=== PATIENT | female | born 1985 | race Caucasian/White ===

== ENCOUNTER 2018-01-02 19:51 | Emergency (ER) | payer OTHER ==
--- OUTSIDE RECORDS SUMMARY | 2018-01-02 20:18 | XMS REPORT ---
:1985 External Reference #:[id number] Author Organization [facility] Address [address] [place] [address] Phone [phone] Care Team Providers Name Role Phone Bettina Pike Care Team Information Product Analyst Unavailable Jose Cannon M.D. 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 Cigarette Use Current Cigarette Smoker 1/2 Pack Daily Cigarette Use for 12 years Cigars Never Smoked Cigars Pipe Never Smoked A Pipe Smokeless Tobacco Never Used Smokeless Tobacco ETOH Use Currently rarely consumes alcohol Smoking Patient is a current smoker, smokes every day Allergies, Adverse Reactions, Alerts Date Description Reaction Status Severity Comments 07/13/2015 Sulfa Antibiotics active 07/13/2015 Hand Sanitzer active Medications Medication Date Status Form Strength Qnty SIG Indications Ordering Provider Nystatin 12/31 Active Cream [id number] 30gm apply to Erlin Davidson /2017 t/GM right ear MD Franco canal daily for 14 days Mometasone 12/31 Active Cream 0.1% 15gm apply to Erlin Davidson Furoate left ear MD Franco daily for 14 days Singulair 00/00 Active Tablets 10mg 1 by Fenstermacher /0000 mouth Bettina LAWSON every day Maxalt 00/00 Active Tablets 10mg 1 as Fenstermacher /0000 needed Bettina LAWSON headache may repeat in 2 hours if needed Metoclopramide 00 Active Tablets 10mg as Fenstermacher HCL /0000 directed PA, Bettina Xanax Active Tablets 0.5mg 1 tab by Fenstermacher /0000 mouth PA, Bettina every 8 hours as needed Tramadol HCL Active Tablets 50mg 1-2 tabs Fenstermacher /0000 every 4-6 PA, Bettina hours as needed pain Nasonex Active Suspension 50mcg/Act 2 sprays Fenstermacher /0000 intranasa PA, Bettina l daily Clarinex Active Tablets 5mg 1 by Fenstermacher /0000 mouth PA, Bettina every day Trazodone HCL Active Tablets 50mg as Fenstermacher /0000 directed PA, Bettina Symbicort Active Aerosol 80-4.5mcg 2 puff Fenstermacher /0000 /Act twice a PA, Bettina day Dulera Active Aerosol 200-5mcg/ 2 puff Fenstermacher /0000 Act twice a PA, Bettina Proair HFA Active Aerosol 108(90Bas 2 puffs Fenstermacher /0000 e) every 6 PA, Bettina mcg/Act hours as needed wheezing and with exercise if needed Clonazepam Active Kassandra, /0000 Jose Martin M.D. Immunizations CPT Code Status Date Vaccine Lot # [id number] Refused 07/13/2015 Influenza Virus Vaccine, 3 Years Of Age And Above, Intramuscular Vital Signs Date Vital Result Comment 12/31/2017 Weight 140.00 lb Weight in kg's 63.504 Height 69.75 inches 5'9.75" Height in cm's 177.2 cm BMI (Body Mass Index) 20.2 kg/m2 07/13/2015 BP Systolic 108 mmHg BP Diastolic 71 mmHg Heart Rate 88 /min Respiratory Rate 16 /min Weight 156.00 lb Weight in kg's 70.762 Height 69.75 inches 5'9.75" Height in cm's 177.2 cm BMI (Body Mass Index) 22.5 kg/m2 Results Description No Information Procedures Date CPT Code Description Status 07/20/2015 40157 Tympanometry Completed 07/20/2015 17447 Comprehensive Audiogram Completed Encounters Type Date Location Provider CPT E/M Dx Office Visit 12/31/2017 Ashley Melendez 07/08/07 Erlin Gamez, [id number] H60.8x1 9:30a MD Office Visit 07/13/2015 [place],After 07/08/07 Erlin Gamez, [id number] R42 3:30p Plan of Care No Information Available
[2018-01-02] MEDS ORDERED: Acetaminophen TAB* 325 MG PO ONE (20:44)
[2018-01-02] MEDS ORDERED: NS 0.9% 1000 ML*IV.FLUID IV ONE (20:45)
[2018-01-02 21:27] LABS: ABS Basophils 0 10^3/ul (0-0.2); ABS Eosinophils 0 10^3/ul (0-0.6); ABS Lymphocytes 1.1 10^3/ul (1.0-4.8); ABS Monocytes 1.1 10^3/ul (0-0.8); ABS Neutrophils 9.3 10^3/ul (1.5-7.7); ABS Nucleated RBC 0 10^3/ul; Eosinophil % 0.1 % (0-6); Hematocrit 41 % (35-47); Hemoglobin 14.6 g/dl (12.0-16.0); Lymphocyte % 9.4 % (25-47); Mean Corpuscular HGB Conc 35 g/dl (31-36); Mean Corpuscular Hemoglobin 32 pg (27-31); Mean Corpuscular Volume 92 fL (80-97); Mean Platelet Volume 8.3 um3 (7.4-10.4); Nucleated Red Blood Cells % 0.1; Platelet Count 170 10^3/ul (150-450); Red Blood Count 4.52 10^6/ul (4.00-5.40); Red Cell Distribution Width 13 % (10.5-15); White Blood Count 11.6 10^3/ul (3.5-10.8)
--- NOTE | 2018-01-02 21:32 | RAD ---
Indication: Cough. 2 views of the chest demonstrate no mediastinal shift. Heart is of normal size and configuration. Linear density in the left base likely represents scarring. This is unchanged from May 29 2015. IMPRESSION: Left base are. Right lung field is clear.
[2018-01-02 21:39] LABS: INR 1.18 (0.77-1.02)
[2018-01-02 21:43] LABS: EGFR Non-African American 58.2 (>60)
[2018-01-02] MEDS ORDERED: Potassium Chlor TAB* 20 MEQ TAB.ER PO ONE (22:01)
[2018-01-02] MEDS ORDERED: Amoxicillin/Clavulanate TAB* 875 MG PO ONE (22:01)
[2018-01-02 22:42] LABS: Urine Appearance Cloudy; Urine Blood 2+ (Negative); Urine Color Yellow; Urine Ketones 1+ (Negative); Urine Protein Negative (Negative); Urine Specific Gravity 1.005 (1.010-1.030); Urine Urobilinogen Negative (Negative)
--- NOTE | 2018-01-02 23:21 | ED ---
Throat Pain/Nasal Congestion - HPI Summary HPI Summary: Patient is a 32-year-old female who presents to the emergency department for complaints of fever, nasal congestion and right ear pain. Patient states she has chronic sinusitis and has had right ear pain for about a week. She states she was prescribed an ointment for right ear infection but has not been using it. Patient was apparently seen by PCP today and was sent to the ER for evaluation of fever, tachycardia and possible goiter. Patient states she has no history of thyroid issues. She also notes a mild cough. She otherwise denies abdominal pain, nausea, vomiting, diarrhea, constipation, urinary symptoms. Symptoms are moderate in severity. No current modifying factors. - History of Current Complaint Chief Complaint: EDGeneral Time Seen by Provider: 01/02/18 20:29 Hx Obtained From: Patient - Allergies/Home Medications Allergies/Adverse Reactions: Allergies Allergy/AdvReac Type Severity Reaction Status Date / Time MS Alcohol [Alcohol] Allergy See Comment Verified 01/02/18 21:08 MS Sulfa Drugs [Sulfa Drugs] Allergy DIARRHEA, Verified 01/02/18 21:08 HIVES ENVIRONMENTAL/SEASONAL Allergy Severe See Comment Uncoded 01/02/18 21:08 HAYFEVER DAIRY AND WHEAT Allergy Diarrhea Uncoded 01/02/18 21:08 Home Medications: Home Medications Albuterol HFA INHALER* [Ventolin HFA Inhaler*] 2 puff INH Q6H PRN 01/02/18 [ History Confirmed 01/02/18] Beclomethasone Dipropionate [Qvar] 1 puff INH BID 01/02/18 [History Confirmed ] Cetirizine* [ZyrTEC 10 MG TAB*] 10 mg PO DAILY 01/02/18 [History Confirmed 01/02] Fluticasone NASAL SPRAY 50MCG* [Flonase NASAL SPRAY 50MCG*] 2 spray BOTH NARES DAILY 01/02/18 [History Confirmed 01/02/18] HYDROcodone/ACETAMIN 5-325 MG* [[place] 5-325 TAB*] 1 tab PO BID PRN 01/02/18 [ History Confirmed 01/02/18] Mometasone Furoate [[place]] 0.1 % TOPICAL QID PRN 01/02/18 [History Confirmed ] Mometasone/Formoter 200/5 MDI* [Dulera 200/5 MDI*] 2 puff INH BID 01/02/18 [ History Confirmed 01/02/18] Montelukast Sodium TAB* [Singulair TAB*] 10 mg PO DAILY 01/02/18 [History Confirmed 01/02/18] Ofloxacin 0.3% OTIC.ALMA* [Floxin 0.3% OTIC.ALMA*] 1 drop OPHTHALMIC BID 01/02/18 [History Confirmed 01/02/18] Omeprazole CAP* [Prilosec CAP* 20 MG] 40 mg PO DAILY 01/02/18 [History Confirmed 01/02/18] Ondansetron TAB* [Zofran 4 MG Tab*] 4 - 8 mg PO Q6H PRN 01/02/18 [History Confirmed 01/02/18] Rizatriptan ODT (NF) [Maxalt-PRESSER HAND (NF)] 10 mg PO DAILY PRN MDD 20 mg 01/02/18 [ History Confirmed 01/02/18] clonazePAM TAB(*) [KlonoPIN TAB(*)] 0.5 - 1 mg PO BEDTIME PRN 01/02/18 [History Confirmed 01/02/18] traMADol TAB* [Ultram*] 50 - 100 mg PO Q8HR PRN 01/02/18 [History Confirmed ] PMH/Surg Hx/FS Hx/Imm Hx Previously Healthy: Yes Cardiovascular History: Denies: Hx Pacemaker/ICD Respiratory History: Reports: Hx Asthma GI History: Reports: Other GI Disorders - ULCERATIVE COLITITS Musculoskeletal History: Reports: Hx Tendonitis - RIGHT WRIST, Other Musculoskeletal History - RIGHT ANKLE AND RIGHT SHOULDER INSTABILITY, RIGHT RUNNER'S KNEE Denies: Hx Rheumatoid Arthritis, Hx Osteoporosis Sensory History: Reports: Hx Contacts or Glasses - GLASSES Denies: Hx Hearing Aid Opthamlomology History: Reports: Hx Contacts or Glasses - GLASSES Neurological History: Reports: Hx Migraine - 2-3 TIMES A WEEK, Other Neuro Impairments/Disorders - BIPOLAR DISORDER Psychiatric History: Reports: Hx Anxiety, Hx Depression Denies: Hx Panic Disorder - Surgical History Surgery Procedure, Year, and Place: BILATERAL MYRINGOTOMY WITH TUBE PLACEMENT A VERY YOUNG CHILD DELTOID REPAIR RT ANKLE 2 OR 3 YRS AGO - Immunization History Date of Tetanus Vaccine: unk Date of Influenza Vaccine: unk Infectious Disease History: No Infectious Disease History: Denies: Traveled Outside the [place] in Last 30 Days - Social History Occupation: Works From/At Home Lives: With Family Alcohol Use: Rare Substance Use Type: Reports: None Smoking Status (MU): Former Smoker Review of Systems Positive: Fever, Chills Eyes: Negative Positive: Ear Ache, Nasal Discharge Cardiovascular: Negative Positive: Cough Gastrointestinal: Negative Negative: Abdominal Pain, Vomiting, Diarrhea, Nausea Genitourinary: Negative Musculoskeletal: Negative Skin: Negative Neurological: Negative All Other Systems Reviewed And Are Negative: Yes Physical Exam Triage Information Reviewed: Yes Vital Signs On Initial Exam: Initial Vitals Temp Pulse Resp BP Pulse Ox 100.4 F 129 16 109/64 99 01/02/18 20:00 01/02/18 20:00 01/02/18 20:00 01/02/18 20:00 01/02/18 20:00 Vital Signs Reviewed: Yes Appearance: Positive: Well-Appearing - Pt. sitting up in bed in NAD. Significant other present. Skin: Positive: Warm, Dry Head/Face: Positive: Normal Head/Face Inspection Eyes: Positive: Normal, Conjunctiva Clear ENT: Positive: Pharynx normal, Other - Right TM is bulging and erythematous. No mastoid tenderness bilaterally.. Negative: Tonsillar swelling, Tonsillar exudate Neck: Positive: Supple, Nontender, No Lymphadenopathy. Negative: Nuchal Rigidity Respiratory/Lung Sounds: Positive: Clear to Auscultation, Breath Sounds Present Cardiovascular: Positive: Normal, RRR Abdomen Description: Positive: Nontender, Soft Neurological: Positive: Normal, CN Intact II-III Psychiatric: Positive: Affect/Mood Appropriate Diagnostics - Vital Signs Vital Signs Temp Pulse Resp BP Pulse Ox 01/02/18 21:00 112 41 99 01/02/18 20:33 115 21 99 01/02/18 20:29 117 18 107/71 99 01/02/18 20:00 100.4 F 129 16 109/64 99 - Laboratory Lab Results: Lab Results 01/02/18 01/02/18 01/02/18 Range/Units 21:12 21:13 21:13 WBC 11.6 H (3.5-10.8) 10^3/ul RBC 4.52 (4.00-5.40) 10^6/ul Hgb 14.6 (12.0-16.0) g/dl Hct 41 (35-47) % MCV 92 (80-97) fL MCH 32 H (27-31) pg MCHC 35 (31-36) g/dl RDW 13 (10.5-15) % Plt Count 170 (150-450) 10^3/ul MPV 8.3 (7.4-10.4) um3 Neut % (Auto) 80.8 (38-83) % Lymph % (Auto) 9.4 L (25-47) % [place] % (Auto) 9.3 H (0-7) % Eos % (Auto) 0.1 (0-6) % Baso % (Auto) 0.4 (0-2) % Absolute Neuts (auto) 9.3 H (1.5-7.7) 10^3/ul Absolute Lymphs (auto) 1.1 (1.0-4.8) 10^3/ul Absolute Monos (auto) 1.1 H (0-0.8) 10^3/ul Absolute Eos (auto) 0 (0-0.6) 10^3/ul Absolute Basos (auto) 0 (0-0.2) 10^3/ul Absolute Nucleated RBC 0 10^3/ul Nucleated RBC % 0.1 INR (Anticoag Therapy) 1.18 H (0.77-1.02) Sodium 135 (135-145) mmol/L Potassium 2.8 L (3.5-5.0) mmol/L Chloride 93 L (101-111) mmol/L Carbon Dioxide 32 (22-32) mmol/L Anion Gap 10 (2-11) mmol/L BUN 6 (6-24) mg/dL Creatinine 1.09 H (0.51-0.95) mg/dL Est GFR ( Amer) 70.4 (>60) Est GFR (Non-Af Amer) 58.2 (>60) BUN/Creatinine Ratio 5.5 L (8-20) Glucose 103 H (70-100) mg/dL Lactic Acid (0.5-2.0) mmol/L Calcium 9.0 (8.6-10.3) mg/dL Total Bilirubin 0.70 (0.2-1.0) mg/dL AST 33 (13-39) U/L ALT 37 (7-52) U/L Alkaline Phosphatase 135 H (34-104) U/L C-Reactive Protein 150.48 H (<8.01) mg/L Total Protein 6.8 (6.4-8.9) g/dL Albumin 3.7 (3.2-5.2) g/dL Globulin 3.1 (2-4) g/dL Albumin/Globulin Ratio 1.2 (1-3) TSH 0.58 (0.34-5.60) mcIU/mL Beta HCG, Quant < 0.60 mIU/mL Urine Color Urine Appearance Urine pH (5-9) Ur Specific Happy (1.010-1.030) Urine Protein (Negative) Urine Ketones (Negative) Urine Blood (Negative) Urine Nitrate (Negative) Urine Bilirubin (Negative) Urine Urobilinogen (Negative) Ur Leukocyte Esterase (Negative) Urine WBC (Auto) (Absent) Urine RBC (Auto) (Absent) Ur Squamous Epith Cells (Absent) Urine Bacteria (Absent) Urine Glucose (Negative) 01/02/18 01/02/18 Range/Units 21:13 22:26 WBC (3.5-10.8) 10^3/ul RBC (4.00-5.40) 10^6/ul Hgb (12.0-16.0) g/dl Hct (35-47) % MCV (80-97) fL MCH (27-31) pg MCHC (31-36) g/dl RDW (10.5-15) % Plt Count (150-450) 10^3/ul MPV (7.4-10.4) um3 Neut % (Auto) (38-83) % Lymph % (Auto) (25-47) % [place] % (Auto) (0-7) % Eos % (Auto) (0-6) % Baso % (Auto) (0-2) % Absolute Neuts (auto) (1.5-7.7) 10^3/ul Absolute Lymphs (auto) (1.0-4.8) 10^3/ul Absolute Monos (auto) (0-0.8) 10^3/ul Absolute Eos (auto) (0-0.6) 10^3/ul Absolute Basos (auto) (0-0.2) 10^3/ul Absolute Nucleated RBC 10^3/ul Nucleated RBC % INR (Anticoag Therapy) (0.77-1.02) Sodium (135-145) mmol/L Potassium (3.5-5.0) mmol/L Chloride (101-111) mmol/L Carbon Dioxide (22-32) mmol/L Anion Gap (2-11) mmol/L BUN (6-24) mg/dL Creatinine (0.51-0.95) mg/dL Est GFR ( Amer) (>60) Est GFR (Non-Af Amer) (>60) BUN/Creatinine Ratio (8-20) Glucose (70-100) mg/dL Lactic Acid 0.9 (0.5-2.0) mmol/L Calcium (8.6-10.3) mg/dL Total Bilirubin (0.2-1.0) mg/dL AST (13-39) U/L ALT (7-52) U/L Alkaline Phosphatase (34-104) U/L C-Reactive Protein (<8.01) mg/L Total Protein (6.4-8.9) g/dL Albumin (3.2-5.2) g/dL Globulin (2-4) g/dL Albumin/Globulin Ratio (1-3) TSH (0.34-5.60) mcIU/mL Beta HCG, Quant mIU/mL Urine Color Yellow Urine Appearance Cloudy Urine pH 6.0 (5-9) Ur Specific Happy 1.005 L (1.010-1.030) Urine Protein Negative (Negative) Urine Ketones 1+ A (Negative) Urine Blood 2+ A (Negative) Urine Nitrate Negative (Negative) Urine Bilirubin Negative (Negative) Urine Urobilinogen Negative (Negative) Ur Leukocyte Esterase 2+ A (Negative) Urine WBC (Auto) 3+(>20/hpf) A (Absent) Urine RBC (Auto) 3+(>10/hpf) A (Absent) Ur Squamous Epith Cells Present A (Absent) Urine Bacteria 1+ A (Absent) Urine Glucose Negative (Negative) Result Diagrams: 01/02/18 21:13 01/02/18 21:13 Lab Statement: Any lab studies that have been ordered have been reviewed, and results considered in the medical decision making process. EENT Course/Dx - Course Course Of Treatment: Pt. presenting to the ER for the above symptoms. Low grade fever of 100.4F, HR 129, 99% on RA, BP 109/64. Pt. was started on IV fluids and given tylenol for fever. She does appear to have a right otitis media. Given concern for goiter, fever, and tachycardia will check labs. CBC shows mild elevation in WBC. K low at 2.8, Cl 93, cr 1.09, alk phos 135, CRP 150. Chest xray negative for infiltrate, reading per radiology. Urinalysis shows elevated specific gravity, ketones, WBCs and RBCs. Normal TSH level. VS improving. On re- exam pt. is resting comfortably. Given oral K. Results discussed. Will treat with augmentin for otitis media and suspected UTI. Pt. to call PCP tomorrow for a close f.u apt. Antibx as rx. OTC potassium. To increase fluids. Tylenol or Motrin for pain and fever as directed. Pt. understands and agrees with plan. - Differential Diagnoses Differential Diagnoses: Influenza, Mastoiditis, Otitis Externa, Otitis Media, Pharyngitis, Sinusitis - Diagnoses Provider Diagnoses: Dehydration, UTI (urinary tract infection), Otitis media, Hypokalemia Discharge - Sign-Out/Discharge Documenting (check all that apply): Discharge/Admit/Transfer - Discharge Plan Condition: Good Disposition: HOME Prescriptions: Amoxicillin/Clavulanate TAB* [Augmentin TAB 875*] 875 mg PO BID #20 tab Patient Education Materials: Urinary Tract Infection in Women (ED), Ear Infection (ED) Referrals: Jose Cannon MD [Primary Care Provider] - Additional Instructions: Call your PCP tomorrow for a close follow up appointment Take antibiotic as directed Tylenol for pain as directed Increase fluids and rest Return to ER if symptoms change or worsen - Billing Disposition and Condition Condition: GOOD Disposition: Home
[2018-01-02 23:35] VITALS: BP 99/66
--- NOTE | 2018-01-03 09:13 | PN ---
Progress Note - Progress Note Date of Service: 01/03/18 Note: Pharmacy called. Patient has allergy to sulfa. Changed medication based on history of chronic otitis media symptoms to clindamycin Patient does not appear to be allergic
--- NOTE | 2018-01-06 08:44 | PN ---
Progress Note - Progress Note Date of Service: 02/01/18 Note: Patient was changed to clindamycin through pharmacy prior to patient picking up this medication. Aerobic culture grew Klebsiella pneumonia Attempted to contact patient twice, on 01/04/18 and 01/05/18 Sent letter to patient on 01/05/18 to make aware of blood culture results Jay flight steward to mail out packet Shirley Meza PA-C filled out paperwork She will either need to follow up with PCP or return if continuing fevers d/t positive blood cultures Another attempt today 01/06/18 made to patient - called at 8:30a an no answer. She remains on Clindamycin at this time Unknown if sensitive as sensitivities not performed
== END 2018-01-02 23:35 | disposition home or self-care (01) ==
LOC: ED 19:51
DX: E86.0 Dehydration (principal); N39.0 Urinary tract infection, site not specified; H66.91 Otitis media, unspecified, right ear; E87.6 Hypokalemia; Z87.891 Personal history of nicotine dependence; J45.909 Unspecified asthma, uncomplicated; F32.9 Major depressive disorder, single episode, unspecified; F41.9 Anxiety disorder, unspecified; Z88.2 Allergy status to sulfonamides
CPT/HCPCS: 36415; 71046; 80053; 81003; 81015; 83605; 84443; 84702; 85025; 85610; 86140; 87040; 87077; 87086; 87186; 96374; 99283; A9270-GY